=== PATIENT | female | born 1980 | race African-American/Black ===

== ENCOUNTER 2024-11-22 15:34 | Emergency (ER) | payer SELFPAY ==
[~2024-11-22] VITALS: Ht 167.6 cm; Wt 85.0 kg
[2024-11-22 16:09] VITALS: O2SAT 99
[2024-11-22 17:18] LABS: BASOPHILS % 0.5 % (0.0-2.0); EOSINOPHILS % 3.1 % (0.0-5.0); HEMATOCRIT. 35.4 % (36.0-48.0); HEMOGLOBIN. 11.0 g/dL (12.0-16.0); LYMPHOCYTES % 32.5 % (20.0-50.0); MEAN PLATELET VOLUME 6.7 fl (7.4-10.4); MONOCYTES % 5.5 % (2.0-8.0); NEUTROPHILS % 58.4 % (40.0-76.0); PLATELET 371 x1000/uL (130-400); RED BLOOD CELL COUNT 4.70 mill/uL (4.2-5.4); RED CELL DISTRIBUTION WIDTH 21.0 % (11.6-14.6)
[2024-11-22 17:27] LABS: CREATININE 0.8 mg/dL (0.6-1.0); UREA NITROGEN BLOOD 8 mg/dL (9-23)
[2024-11-22 17:28] LABS: HCG SCREEN NEGATIVE
[2024-11-22 17:29] LABS: ASPARTATE AMINOTRANSFERASE 20 IU/L (<34); BILIRUBIN DIRECT < 0.1 mg/dL (<=3.0); BILIRUBIN TOTAL 0.2 mg/dL (0.1-1.0)
[2024-11-22 17:30] LABS: PROTEIN TOTAL 7.6 g/dL (6.0-8.3)
[2024-11-22 18:40] LABS: CLARITY URINE CLOUDY (CLEAR); COLOR URINE DARK YELLOW (YELLOW)
[2024-11-22 18:41] LABS: GLUCOSE URINE NEGATIVE (NEGATIVE); KETONES URINE TRACE (NEGATIVE); LEUKOCYTE ESTERASE URINE 2+ (NEGATIVE); NITRITE URINE NEGATIVE (NEGATIVE); OCCULT BLOOD URINE NEGATIVE (NEGATIVE); PH URINE 6.0 (4.5-8.0); PROTEIN URINE TRACE (NEGATIVE); SPECIFIC GRAVITY URINE 1.022 (1.005-1.030); UROBILINOGEN URINE 1.0 E.U./dL (0.2-1.0)
[2024-11-22 19:23] LABS: BACTERIA URINE 2+; CALCIUM OXALATE CRYSTALS URINE 1+ /lpf; RBC URINE NONE SEEN /hpf (0-2); SQUAMOUS EPITHELIAL CELL URINE 1+ /lpf (RARE/1+)
[2024-11-22] MEDS: KETOROLAC 15MG/ML VIAL IM ONE (19:46)
[2024-11-22] MEDS ORDERED: LIDO-53 TP (20:00)
[2024-11-22] MEDS ORDERED: NITR100C MT (20:00)
[2024-11-22] MEDS ORDERED: NAPR-679 MT (20:00)
[2024-11-22 20:15] VITALS: BP 127/51; PULSE 82; RESP 16; TEMP 37; O2SAT 99
== END 2024-11-22 20:21 | disposition home or self-care (01) ==
LOC: ER 15:34
DX: N39.0 Urinary tract infection, site not specified (principal); J45.909 Unspecified asthma, uncomplicated; Z79.1 Long term (current) use of non-steroidal anti-inflammatories (NSAID); Z88.0 Allergy status to penicillin
CPT/HCPCS: 99283; 80076; 80048; 81003; 84703; 83690; 85025; 36415; 96372; J1885